=== PATIENT | female | born 1965 ===

== ENCOUNTER 2017-01-19 06:50 | Day surgery (SDC) | payer OTHER ==
[2017-01-19 07:39] VITALS: BMI 30.1
[2017-01-19] MEDS ORDERED: Propofol 10 mg/ml Inj (20 ML) ONE (07:45)
--- NOTE | 2017-01-19 08:08 | CP.SDSHP ---
Same Day Surgery H & P - History Proposed Procedure: EGD Pre-Op Diagnosis: SEE NOTES - Previous Medical/Surgical History Cardiac: Hypertension Misc: Other Pain: 4.Moderate Pain - Allergies Allergies: Allergies No Known Allergies Allergy (Verified 04/07/16 07:27) - Physical Exam General Appearance: N Vital Signs: Vital Signs 01/19/17 07:42 Temperature 97 F L Pulse Rate 60 Respiratory 17 Rate Blood Pressure 131/71 O2 Sat by Pulse 97 Oximetry Mental Status: Alert & Oriented x3 Neuro: WNL Heart: Other Lungs: WNL GI: Other - {Optional Preform as Required} Breast: WNL Abdomen: Other Rectal: Other Integument: WNL : WNL Ortho: Other ENT: WNL - Impression Pt. Evaluated Today:Candidate for Anesthesia & Procedure: Yes - Date & Time Time: 08:08 Short Stay Discharge - Short Stay Discharge Admitting Diagnosis/Reason for Visit: DYSPEPSIA Disposition: HOME/ ROUTINE
[2017-01-19] MEDS ORDERED: Pantoprazole 40 mg EC Tab PO STA (08:10)
[2017-01-19] MEDS ORDERED: Belladonna-Phenobarbital PO STA (08:12)
[2017-01-19 08:34] VITALS: TEMP 98
[2017-01-19 09:01] VITALS: O2SAT 98
[2017-01-19 09:52] VITALS: BP 128/59; PULSE 51; RESP 16
== END 2017-01-19 09:45 | disposition home or self-care (01) ==
LOC: C.ENDO 06:50
PROVIDERS: ATTEND Specialist
DX: K29.00 Acute gastritis without bleeding (principal); K44.9 Diaphragmatic hernia without obstruction or gangrene; K29.80 Duodenitis without bleeding
CPT/HCPCS: 43239; 88305; 88342; J2001; J2704

== ENCOUNTER 2017-08-10 07:00 | Day surgery (SDC) | payer OTHER ==
[2017-08-10 07:18] VITALS: BMI 30.5
--- NOTE | 2017-08-10 09:08 | CP.SDSHP ---
Same Day Surgery H & P - History Proposed Procedure: colonscopy Pre-Op Diagnosis: SEE NOTES - Previous Medical/Surgical History Cardiac: Hypertension Misc: Other Pain: 4.Moderate Pain - Allergies Allergies: Allergies No Known Allergies Allergy (Verified 04/07/16 07:27) - Physical Exam General Appearance: N Vital Signs: Vital Signs 08/10/17 07:19 Temperature 97.3 F L Pulse Rate 78 Respiratory 19 Rate Blood Pressure 106/83 O2 Sat by Pulse 98 Oximetry Mental Status: Alert & Oriented x3 Neuro: WNL Heart: Other Lungs: WNL GI: Other - {Optional Preform as Required} Breast: WNL Abdomen: Other Rectal: Other Integument: WNL : WNL Ortho: WNL ENT: WNL Eyes: Best Corrected Vision Right - Impression Pt. Evaluated Today:Candidate for Anesthesia & Procedure: Yes - Date & Time Time: 09:08 Short Stay Discharge - Short Stay Discharge Admitting Diagnosis/Reason for Visit: RECTAL BLEEDING Disposition: HOME/ ROUTINE
[2017-08-10] MEDS ORDERED: Propofol 10 mg/ml Inj (20 ML) ONE (09:09)
[2017-08-10 09:11] VITALS: O2SAT 100
[2017-08-10] MEDS ORDERED: Belladonna-Phenobarbital PO ONE (09:50)
[2017-08-10 10:08] VITALS: RESP 16
[2017-08-10 10:48] VITALS: BP 102/45; PULSE 59; TEMP 97.2
== END 2017-08-10 10:30 | disposition home or self-care (01) ==
LOC: C.ENDO 07:00
PROVIDERS: ATTEND Specialist
DX: K60.2 Anal fissure, unspecified (principal); K64.8 Other hemorrhoids; K64.4 Residual hemorrhoidal skin tags
CPT/HCPCS: 45380; 88305; J2704